=== PATIENT | female | born 2005 | race Caucasian/White ===

== ENCOUNTER 2023-06-22 13:10 | Emergency (ER) | payer OTHER, SELFPAY ==
--- NOTE | ~2023-06-22 | XR_ITS ---
EXAMINATION: XR finger 5th RT min 2V INDICATION: Right fifth finger pain TECHNIQUE: Four views of the right fifth finger are obtained. COMPARISON: None available FINDINGS: No fracture, dislocation, or subluxation. The bones, soft tissues, and joint spaces are nor mal. IMPRESSION: 1. No acute osseous abnormality. Reviewed, dictated and finalized at location A. LOADER
[2023-06-22 13:23] VITALS: BP 111/79; PULSE 80; RESP 16; TEMP 36.8; O2SAT 100
--- NOTE | 2023-06-22 13:36 | ED.UPPEXIN ---
HPI - Extremity Injury (Upper) General Chief Complaint: Extremity Injury, Upper Stated Complaint: INJURED FINGER Time Seen by Provider: 06/22/23 13:31 Source: patient and RN notes reviewed Mode of arrival: ambulatory Limitations: no limitations History of Present Illness HPI narrative: Patient presents today complaining of an injury to her right 5th finger. Approximately 3 hours prior to arrival foot, patient got her finger smashed in between a wall and table top. She does report some tingling to the finger. Denies any current pain. She took ibuprofen and applied ice prior to arrival as well as cleaning the abrasion on her finger and applying Neosporin. Patient states she is not up-to-date on her tetanus vaccine. Related Data Home Medications Medication Instructions Recorded Confirmed adapalene 0.1 % topical cream 1 applic topical HS 06/22/23 06/22/23 (Differin) Allergies Allergy/AdvReac Type Severity Reaction Status Date / Time Penicillins Allergy Rash Verified 06/22/23 13:30 Review of Systems Review of Systems: CONSTITUTIONAL: Denies body aches, fever, chills, or sweats. EYES: Denies visual changes, redness, or discharge. ENT: Denies rhinorrhea, congestion, sore throat, or otalgia. CARDIOVASCULAR: Denies chest pain, palpitations, or edema. RESPIRATORY: Denies cough or dyspnea. GASTROINTESTINAL: Denies abdominal pain, nausea, vomiting, or diarrhea. GENITOURINARY: Denies dysuria or hematuria. SKIN: Denies rash, itching, or wounds. MUSCULOSKELETAL: Denies back pain, or myalgia.+ finger injury NEUROLOGIC: Denies headache, numbness, tingling, or weakness. PSYCH: Denies depression or anxiety. PMFSH Comments At time of signature, I have reviewed and agree with nursing past medical, surgical, social and family history unless otherwise noted. Please see nursing chart for further information. There is no relevant family history pertinent to the presenting complaint Exam Narrative: GENERAL: Well-appearing, well-nourished, and in no acute distress. HEAD: Normocephalic, atraumatic. EYES: EOMI. No redness or drainage. Conjunctivae normal. ENT: Mucous membranes pink and moist. NECK: Normal AROM. CHEST: No respiratory distress. EXTREMITIES: Right 5th finger: Superficial abrasion to the dorsum of the proximal phalanx. Mild to moderate edema with mild ecchymosis to the proximal phalanx. Distal sensation intact. Capillary refill normal. Full AROM of the finger against resistance. SKIN: Warm, dry, no rash. Capillary refill normal. Normal skin turgor. NEURO: No focal deficits. Alert and oriented x3. Gait steady. PSYCH: Normal affect. No signs of depression or anxiety. Course Course Level of Care: Express Care Visit Vital Signs Vital signs: Vital Signs Temperature 98.3 F 06/22/23 13:23 Pulse Rate 80 06/22/23 13:23 Respiratory Rate 16 06/22/23 13:23 Blood Pressure 111/79 06/22/23 13:23 Pulse Oximetry 100 06/22/23 13:23 Temperature 98.3 F 06/22/23 13:23 Pulse Rate 80 06/22/23 13:23 Respiratory Rate 16 06/22/23 13:23 Blood Pressure 111/79 06/22/23 13:23 Pulse Oximetry 100 06/22/23 13:23 Reviewed MDM - Extremity Injury (Upper) MDM Narrative Medical decision making narrative: Finger x-ray is negative. Patient declines splint. Discussed [id number] medications. Tetanus shot has been updated. Anticipatory guidance given. Differential Diagnosis Differential diagnosis: Likely other (Contusion, fracture) Imaging Data Radiologist's impression: ITS Impressions Finger X-Ray 06/22/23 13:39 IMPRESSION: 1. No acute osseous abnormality. Critical Care Time Critical Care Time Critical Care Time: No Discharge Plan Discharge Clinical Impression: Contusion of right index finger Qualifiers: Encounter type: initial encounter Damage to nail status: without damage Qualified Code(s): S60.021A - Contusion of right index finger withou
[2023-06-22] MEDS: TETANUS,DIPHTHERIA,AC PERTUSSIS ADULT (0.5 ML) BOOSTRIX IM (13:56)
== END 2023-06-22 14:07 | disposition home or self-care (01) ==
PROVIDERS: Emergency Provider Nurse Practitioner
DX: S60.051A Contusion of right little finger without damage to nail, initial encounter (principal); X58.XXXA Exposure to other specified factors, initial encounter; Z23 Encounter for immunization
CPT/HCPCS: 73140; 90471; 90715; 99213; G0463